=== PATIENT | female | born 1950 | race Caucasian/White ===

== ENCOUNTER 2016-12-21 09:51 | Outpatient (CLI) | payer MEDICARE, OTHER ==
--- NOTE | 2016-12-24 16:57 | Mammography Report ---
DIGITAL SCREENING MAMMOGRAM: 12/21/2016 CLINICAL INDICATION: A 66-year-old with history of late childbearing, family history of breast cance r for screening. COMPARISON: Films from [place], [place] dated 10/12/2015. TECHNIQUE: Routine CC and MLO projections were obtained of the breasts. FINDINGS: The breasts demonstrate fatty replacement bilaterally. Intramammary lymph nodes are stabl e. No suspicious masses, clustered microcalcifications, or regions of architectural distortion are i dentified. IMPRESSION: BENIGN FINDINGS. RECOMMENDATION: Routine annual screening unless otherwise clinically indicated. BIRADS CATEGORY 2 - BENIGN FINDINGS. STANDARD QUALIFYING STATEMENTS 1. This examination was reviewed with the aid of Computer-Aided Detection (CAD). 2. A negative or benign imaging report should not delay biopsy if clinically suspicious findings are present. Consider surgical consultation if warranted. More than 5% of cancers are not identified by i maging. 3. Dense breasts may obscure an underlying neoplasm. JOB #: [id number] EXT JOB #:[id number]
== END 2016-12-21 09:52 | disposition home or self-care (01) ==
LOC: DI 09:51
PROVIDERS: ATTEND Internal Medicine
DX: Z12.31 Encounter for screening mammogram for malignant neoplasm of breast (principal); Z80.3 Family history of malignant neoplasm of breast
CPT/HCPCS: 77067

== ENCOUNTER 2018-02-27 11:54 | Outpatient (CLI) | payer MEDICARE, OTHER ==
--- NOTE | 2018-02-28 17:27 | Mammography Report ---
Reason: ROUTINE MAMMO Procedure Date: 02/27/2018 Accession Number: [id number] / [id number] Procedure: ASHLEY - Screening Mammo Dig Bilat CPT Code: FULL RESULT: EXAM: Screening Mammo Dig Bilat DATE: 02/27/2018 12:15 PM CLINICAL HISTORY: 67-year-old female with history of late childbearing and family history of breast cancer in the mother at age 55. TECHNIQUE: Bilateral CC and MLO views were obtained. COMPARISON: 12/21/2016, 10/12/2015. FINDINGS: The breasts demonstrate scattered fibroglandular densities bilaterally. In the upper lateral left breast is a stable nodule which contains fat, consistent with a lymph node, typically benign. No suspicious masses, clustered microcalcifications, or regions of architectural distortion are identified. IMPRESSION: Benign findings RECOMMENDATION: Routine annual screening unless otherwise clinically indicated. BIRADS CATEGORY 2: Benign findings STANDARD QUALIFYING STATEMENTS: 1. This examination was not reviewed with the aid of Computer-Aided Detection (CAD). 2. A negative or benign imaging report should not delay biopsy if clinically suspicious findings are present. Consider surgical consultation if warrented. More than 5% of cancers are not identified by imaging. 3. Dense breasts may obscure an underlying neoplasm. 4. This examination was reviewed without the aid of 3D breast imaging (tomosynthesis).
== END 2018-02-27 11:55 | disposition home or self-care (01) ==
LOC: DI 11:54
PROVIDERS: ATTEND Internal Medicine
DX: Z12.31 Encounter for screening mammogram for malignant neoplasm of breast (principal); Z80.3 Family history of malignant neoplasm of breast
CPT/HCPCS: 77067

== ENCOUNTER 2019-03-25 15:00 | Outpatient (CLI) | payer MEDICARE, OTHER ==
--- NOTE | 2019-03-26 09:57 | Mammography Report ---
Reason: ROUTINE MAMMO Procedure Date: 03/25/2019 Accession Number: [id number] / [id number] Procedure: ASHLEY - Screening Mammo w/Kevin CPT Code: FULL RESULT: EXAM: Screening Mammo w/Kevin DATE: 03/25/2019 3:27 PM CLINICAL HISTORY: Routine screening TECHNIQUE: (B) - Bilateral CC and MLO views were obtained. COMPARISON: 02/27/2018, 10/12/2015 PARENCHYMAL PATTERN: (A) - The breasts demonstrate scattered fibroglandular densities bilaterally. FINDINGS: Left breast: No significant interval change. There are no suspicious masses, calcifications, or areas of distortion. Right breast: 2 or 3 subcentimeter nodular densities 12:00 position 5 cm posterior to the nipple for which spot compression and true lateral views and possible ultrasound are suggested. No suspicious microcalcifications or architectural distortion. IMPRESSION: Incomplete examination. BI-RADS category 0. Needs additional evaluation right breast. Negative left breast. RECOMMENDATION: ([facility]) - Additional views using both Mammography and Ultrasound recommended. Right breast BI-RADS CATEGORY: (0) - Incomplete Examination - need additional evaluation. STANDARD QUALIFYING STATEMENTS: 1. This examination was not reviewed with the aid of Computer-Aided Detection (CAD). 2. A negative or benign imaging report should not preclude biopsy if clinically suspicious findings are present. 3. Dense breasts may obscure an underlying neoplasm. 4. This examination was reviewed with the aid of 3D breast imaging (tomosynthesis).
== END 2019-03-25 15:01 | disposition home or self-care (01) ==
LOC: DI 15:00
PROVIDERS: ATTEND Internal Medicine
DX: Z12.31 Encounter for screening mammogram for malignant neoplasm of breast (principal); R92.8 Other abnormal and inconclusive findings on diagnostic imaging of breast
CPT/HCPCS: 77063; 77067

== ENCOUNTER 2019-03-30 09:59 | Outpatient (CLI) | payer MEDICARE, OTHER ==
--- NOTE | 2019-03-30 12:08 | Mammography Report ---
Reason: ABN MAMMO - RT SPEC VIEWS Procedure Date: 03/30/2019 Accession Number: [id number] / [id number] Procedure: ASHLEY - Diag Special Views Dig RT CPT Code: FULL RESULT: EXAM: Diag Special Views Dig RT DATE: 03/30/2019 11:16 AM CLINICAL HISTORY: Follow-up tiny right asymmetric densities on screening mammogram of 03/25/2019. TECHNIQUE: (R) - Right CC and MLO views were obtained. COMPARISON: 03/25/2019 FINDINGS: Previously described densities partially attenuate on additional views. IMPRESSION: Probably Benign. BI-RADS category 3. Right breast RECOMMENDATION: (6MOS) - Recommend 6 month follow-up exam. BI-RADS CATEGORY: (3) - Probably Benign. STANDARD QUALIFYING STATEMENTS: 1. This examination was not reviewed with the aid of Computer-Aided Detection (CAD). 2. A negative or benign imaging report should not preclude biopsy if clinically suspicious findings are present. 3. Dense breasts may obscure an underlying neoplasm. 4. This examination was reviewed with the aid of 3D breast imaging (tomosynthesis).
== END 2019-03-30 10:00 | disposition home or self-care (01) ==
LOC: DI 09:59
PROVIDERS: ATTEND Internal Medicine
DX: R92.8 Other abnormal and inconclusive findings on diagnostic imaging of breast (principal)

== ENCOUNTER 2020-04-20 10:32 | Outpatient (CLI) | payer MEDICARE, OTHER ==
--- NOTE | 2020-04-21 16:43 | Mammography Report ---
BILATERAL DIGITAL DIAGNOSTIC MAMMOGRAM 3D/2D: 04/20/2020 CLINICAL: Patient returns for a 6 month follow up of the right breast, due for bilateral exam. Comparison is made to exams dated: 03/30/2019 mammogram, 03/25/2019 mammogram, 02/27/2018 mammogram, and 12/21/2016 mammogram - [facility]. The tissue of both breasts is predominantly fatty. No significant masses, calcifications, or other findings are seen in either breast. A cluster of wel l circumscribed asymetries in the right breast in unchanged. IMPRESSION: BENIGN There is no mammographic evidence of malignancy. Return to annual mammogram screening schedule is rec ommended. This exam was interpreted at Station ID: [id number]. NOTE: For mammograms, a report in lay terms will be sent to the patient. Approximately 15% of breast malignancies will not be visualized mammographically. In the management of a palpable breast mass, a negative mammogram must not discourage biopsy of a clinically suspicious lesion. Electronically Signed By: Eleazar Delatorre acr/:04/20/2020 12:55:12 ACR BI-RADS Category 2: Benign Finding(s) 3342F PARENCHYMAL PATTERN: (F) - The breast(s) demonstrate(s) diffuse fatty replacement. BI-RADS CATEGORY: (2) - 2 RECOMMENDATION: (ANNUAL) - Recommend routine annual screening mammography. [id number] return to screening LATERALITY: (B)
== END 2020-04-20 10:33 | disposition home or self-care (01) ==
LOC: DI 10:32
PROVIDERS: ATTEND Internal Medicine
DX: R92.8 Other abnormal and inconclusive findings on diagnostic imaging of breast (principal); N64.59 Other signs and symptoms in breast
CPT/HCPCS: 77066

== ENCOUNTER 2021-08-22 08:00 | Outpatient (CLI) | payer MEDICARE, OTHER ==
[2021-08-22 16:14] LABS: BASOPHILS # (AUTO) 0.1 10^3/uL (0.0-0.1); BASOPHILS % (AUTO) 1.7 %; EOSINOPHILS # (AUTO) 0.3 10^3/uL (0.0-0.7); EOSINOPHILS % (AUTO) 3.7 %; HCT - HEMATOCRIT 39.6 % (37.0-47.0); HGB - HEMOGLOBIN 13.1 g/dL (12.0-16.0); LYMPHOCYTES % (AUTO) 26.2 %; MEAN CORPUSCULAR HEMOGLOBIN 32.5 pg (27.0-31.0); MEAN CORPUSCULAR HGB CONC 33.1 g/dL (32.0-36.0); MEAN CORPUSCULAR VOLUME 98.3 fL (81.0-99.0); MEAN PLATELET VOLUME 10.1 fL (7.9-10.8); MONOCYTES # (AUTO) 0.8 10^3/uL (0.0-1.0); MONOCYTES % (AUTO) 9.8 %; NEUTROPHILS # (AUTO) 4.4 10^3/uL (1.5-6.6); NEUTROPHILS % (AUTO) 58.2 %; PLT - PLATELET COUNT 329 10^3/uL (130-450); RED BLOOD COUNT 4.03 10^6/uL (4.20-5.40); RED CELL DISTRIBUTION WIDTH 12.1 % (12.0-15.0); WHITE BLOOD COUNT 7.6 x10^3/uL (4.8-10.8)
[2021-08-22 16:32] LABS: ALBUMIN 4.5 g/dL (3.2-5.5); ALBUMIN/GLOBULIN RATIO 1.3 (1.0-2.2); ALKALINE PHOSPHATASE 85 IU/L (42-121); ALT ALANINE AMINOTRANSFERASE 29 IU/L (10-60); AST ASPARTATE AMINOTRANSFERASE 25 IU/L (10-42); BILIRUBIN,TOTAL 0.2 mg/dL (0.2-1.0); BUN - BLOOD UREA NITROGEN 19 mg/dL (6-20); CALCIUM 9.4 mg/dL (8.5-10.3); CARBON DIOXIDE - CO2 25 mmol/L (21-32); CHLORIDE 98 mmol/L (101-111); CHOL/HDL RATIO 4.3 (<4.4); CHOLESTEROL 199 mg/dL; CK- CREATINE KINASE 133 IU/L (22-269); CREATININE 0.7 mg/dL (0.4-1.0); GFR - MDRD 82 (>89); GLUCOSE 138 mg/dL (70-100); HDL CHOLESTEROL 46 mg/dL; LDL CHOLESTEROL,CALCULATED 110 mg/dL; LDL/HDL RATIO 2.4 (<4.4); POTASSIUM 3.6 mmol/L (3.5-5.0); SODIUM 135 mmol/L (135-145); TOTAL PROTEIN 7.9 g/dL (6.7-8.2); TRIGLYCERIDES 213 mg/dL; VLDL CHOLESTEROL 43 mg/dL
[2021-08-22 16:38] LABS: CREATININE,URINE 184.4 mg/dL; MICROALBUMIN,URINE 1.3 mg/dL (0-300.0)
[2021-08-22 20:47] LABS: ESTIMATED AVERAGE GLUCOSE 146 mg/dL (70-100); HEMOGLOBIN A1c% 6.7 % (4.27-6.07)
== END 2021-08-22 23:59 ==
LOC: LAB.R 08:00
PROVIDERS: ATTEND Internal Medicine
DX: Z00.00 Encounter for general adult medical examination without abnormal findings (principal); H26.9 Unspecified cataract; E11.9 Type 2 diabetes mellitus without complications; E78.5 Hyperlipidemia, unspecified; I10 Essential (primary) hypertension; E78.1 Pure hyperglyceridemia; Z13.6 Encounter for screening for cardiovascular disorders; Z79.899 Other long term (current) drug therapy
CPT/HCPCS: 80053; 80061; 82043; 82550; 82570; 83036; 83721; 84443; 85025

== ENCOUNTER 2021-10-18 12:41 | Outpatient (CLI) | payer MEDICARE, OTHER ==
--- NOTE | 2021-10-19 14:51 | Mammography Report ---
BILATERAL DIGITAL SCREENING MAMMOGRAM 3D/2D: 10/18/2021 CLINICAL: Family history of breast cancer. Routine screening. Comparison is made to exams dated: 04/20/2020 mammogram, 03/25/2019 mammogram, 02/27/2018 mammogram, 12/21/2016 mammogram - [facility], and [facility]. Ther e are scattered fibroglandular elements in both breasts. No significant masses, calcifications, or other findings are seen in either breast. There has been no significant interval change. IMPRESSION: NEGATIVE There is no mammographic evidence of malignancy. A 1 year screening mammogram is recommended. This exam was interpreted at Station ID: [id number]. NOTE: For mammograms, a report in lay terms will be sent to the patient. Approximately 15% of breast malignancies will not be visualized mammographically. In the management of a palpable breast mass, a negative mammogram must not discourage biopsy of a clinically suspicious lesion. Electronically Signed By: Samuel Cheek M.D. [facility]/[place]:10/18/2021 16:55:51 ACR BI-RADS Category 1: Negative 3341F PARENCHYMAL PATTERN: (A) - The breast(s) demonstrate(s) scattered fibroglandular densities. BI-RADS CATEGORY: (1) - 1 RECOMMENDATION: (ANNUAL) - Recommend routine annual screening mammography. [id number] 1 year screening LATERALITY: (B)
== END 2021-10-18 12:42 | disposition home or self-care (01) ==
LOC: DI.N 12:41
PROVIDERS: ATTEND Internal Medicine
DX: Z12.31 Encounter for screening mammogram for malignant neoplasm of breast (principal); Z80.3 Family history of malignant neoplasm of breast

== ENCOUNTER 2022-10-10 11:13 | Outpatient (CLI) | payer MEDICARE, OTHER ==
--- NOTE | 2022-10-11 09:12 | Mammography Report ---
BILATERAL DIGITAL SCREENING MAMMOGRAM 3D/2D: 10/10/2022 CLINICAL: Routine screening. Comparison is made to exams dated: 10/18/2021 mammogram, 04/20/2020 mammogram, 03/30/2019 mammogram, 03/25/2019 mammogram, 02/27/2018 mammogram, and 12/21/2016 mammogram - [facility]. There are scattered areas of fibroglandular density in both breasts (category b / 25%-50% glandular t issue). No significant masses, calcifications, or other findings are seen in either breast. There has been no significant interval change. IMPRESSION: NEGATIVE There is no mammographic evidence of malignancy. A 1 year screening mammogram is recommended. Based on the Tyrer Cuzick model (a risk assessment model) the patients lifetime risk is 11.9% and he r 10 year risk is 8.9%. According to the ACR, ACS, and NCCN guidelines, an annual breast MRI exam rita ng with mammogram is recommended if the patients lifetime risk is 20% or greater. This exam was interpreted at Station ID: [id number]. NOTE: For mammograms, a report in lay terms will be sent to the patient. Approximately 15% of breast malignancies will not be visualized mammographically. In the management of a palpable breast mass, a negative mammogram must not discourage biopsy of a clinically suspicious lesion. Electronically Signed By: Patel dunham/javier:10/10/2022 12:30:33 letter sent: No_Letter ACR BI-RADS Category 1: Negative 3341F PARENCHYMAL PATTERN: (A) - The breast(s) demonstrate(s) scattered fibroglandular densities. BI-RADS CATEGORY: (1) - 1 Mammogram [id number] 1 year screening LATERALITY: (B)
== END 2022-10-10 11:14 | disposition home or self-care (01) ==
LOC: DI 11:13
PROVIDERS: ATTEND Internal Medicine
DX: Z12.31 Encounter for screening mammogram for malignant neoplasm of breast (principal)

== ENCOUNTER 2023-10-22 11:24 | Outpatient (CLI) | payer MEDICARE, OTHER ==
--- NOTE | 2023-10-23 09:13 | Mammography Report ---
BILATERAL DIGITAL SCREENING MAMMOGRAM 3D/2D: 10/22/2023 CLINICAL: Routine screening. Comparison is made to exams dated: 10/10/2022 mammogram, 10/18/2021 mammogram, and 04/20/2020 mammogra m - [facility]. There are scattered areas of fibroglandular density in both breasts (category b / 25%-50% glandular t issue). No significant masses, calcifications, or other findings are seen in either breast. There has been no significant interval change. IMPRESSION: NEGATIVE There is no mammographic evidence of malignancy. A 1 year screening mammogram is recommended. Based on the Tyrer Cuzick model (a risk assessment model) the patient's lifetime risk is 11.2% and he r 10 year risk is 9.1%. According to the ACR, ACS, and NCCN guidelines, an annual breast MRI exam rita ng with mammogram is recommended if the patient's lifetime risk is 20% or greater. This exam was interpreted at Station ID: [id number]. NOTE: For mammograms, a report in lay terms will be sent to the patient. Approximately 15% of breast malignancies will not be visualized mammographically. In the management of a palpable breast mass, a negative mammogram must not discourage biopsy of a clinically suspicious lesion. Electronically Signed By: Shubham davison/javier:10/22/2023 16:21:37 letter sent: No_Letter ACR BI-RADS Category 1: Negative 3341F PARENCHYMAL PATTERN: (A) - The breast(s) demonstrate(s) scattered fibroglandular densities. BI-RADS CATEGORY: (1) - 1 RECOMMENDATION: (ANNUAL) - Recommend routine annual screening mammography. [id number] 1 year screening LATERALITY: (B)
== END 2023-10-22 11:25 | disposition home or self-care (01) ==
LOC: DI 11:24
PROVIDERS: ATTEND Internal Medicine
DX: Z12.31 Encounter for screening mammogram for malignant neoplasm of breast (principal); R92.323 Mammographic fibroglandular density, bilateral breasts